=== PATIENT | female | born 1975 | race Caucasian/White ===

== ENCOUNTER 2022-08-27 05:50 | Day surgery (SDC) | payer BC, OTHER ==
--- NOTE | 2022-08-21 07:59 | NUR ---
TALKED WITH PATRICK ABOUT EKG AND LABS AND THEY BOTH WILL BE REDONE ON ARRIVAL.
[~2022-08-27] VITALS: Ht 165.1 cm; Wt 68.2 kg
[~2022-08-27 05:50] MED LIST: LISINOPRIL-HCT1 EAC1 PO; LISINOPRIL-HCT1 EACH PO; MAXALT10 MG PO; MAXALT5 MG PO; WELLBUTRIN SR100 MG PO; WELLBUTRIN XL150 MG PO
--- NOTE | 2022-08-27 09:34 | NUR ---
08/27/22 0934 Trena Art 0924-PATIENT ARRIVED TO PACU DROWSY ON 6L MASK RR EVEN HOB ELEVATED. PATIENT SR. IVF INFUSING. PATIENT REACTIVE TO VERBAL STIMULI DENIES PAIN OR NAUSEA. INCISIONS CDI TIMOTHY PAD IN PLACE SMALL AMT OF DRAINAGE. 0933-PATIENT AWAKE WANTING TO SIT UP MORE. HOB ELEVATED AND PATIENT REPOSITIONED SELF IN BED. PATIENT PLACED ON RA 100% RR EVEN. DENIES PAIN OR NAUSEA.
--- NOTE | 2022-08-27 10:13 | NUR ---
0950: PT ARRIVES TO DS TREATMENT ROOM VIA STRETCHER AWAKE AND ALERT. PT DENIES NAUSEA AND TOLERATE SMALL SIPS OF WATER. PT RATES PAIN 4/10 AND STATES "IT'S FINE, IT REALLY ISN'T THAT BAD" PT EDUCATED ABOUT PAIN MANAGEMENT AND WILL LET RN KNOW IF PAIN INCREASES. PT STATES URGE TO VOID AND IS ASSISTED TO SIDE OF BED PRIOR TO STANDING, STATES SLIGHT DIZZINESS WITH NO NAUSEA. PT STANDS WHEN READY AND SLOWLY AMBULATES TO ATTACHED BATHROOM WITH RN AND DAUGHTER ASSIST. PT ABLE TO VOID QS YELLOW URINE WITH RED TINGE, NO CLOTS PRESENT. PROVIDED NEW TIMOTHY PAD AND MESH PANTIES. BACK TO STRETCHER WITH WARM BLANKETS AND CALL LIGHT WITHIN REACH. FAMILY AT BEDSIDE AND DC CRITERIA EXPLAINED.
--- NOTE | 2022-08-27 10:45 | NUR ---
1045: PT USES CALL LIGHT FOR PAIN MEDICATION, RATES PAIN 6/10. PT BACK TO BASELINE AND CONVERSING WITH FAMILY AT BEDSIDE, TOLERATES CRACKERS WITH NO NAUSEA. 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
--- NOTE | 2022-08-27 14:08 | NUR ---
[id number]: PT RATES PAIN 3/10 IN ABD AND DENIES ANY NAUSEA OR S/S OF REACTION FROM PAIN MEDICATION. DC CRITERIA MET AT THIS TIME AND PT DESIRES TO DC HOME. PT DRESSES SELF AND OPENS CURTAIN WHEN FINISHED. DC INSTRUCTIONS PRESENTED VERBALLY AND WRITTEN. PT CONFIRMS SHE ALREADY HAS MEDICATIONS AT HOME THAT DR. ANTHONY PRESCRIBED IN ADVANCE. PT DC FROM DS TREATMENT ROOM VIA WC TO DAUGHTER WAITING AT FRONT ENTRANCE IN PERSONAL VEHICLE TO HOME.
--- NOTE | 2022-08-28 08:56 | OR ---
[facility] [address] [place], [place] [address] Signed DATE OF OPERATION: 08/27/2022 SURGEON: Pat Eden MD HEALTHCARE PROJECT MANAGER: ROJELIO Oneil DO PREOPERATIVE DIAGNOSES: Prior endometrial ablation, abnormal uterine bleeding, probable adenomyosis. POSTOPERATIVE DIAGNOSES: Prior endometrial ablation, abnormal uterine bleeding, probable adenomyosis with pelvic adhesions. PROCEDURE: Total laparoscopic hysterectomy with bilateral salpingectomy, lysis of adhesions, and cystoscopy. ANESTHESIA: General ET. ESTIMATED BLOOD LOSS: 30 mL. DRAINS: None. INDICATIONS AND FINDINGS: The patient is a 47-year-old female who underwent an endometrial ablation quite sometime ago. She began having abnormal bleeding as well as increasing pain. Ultrasound was consistent with adenomyosis. She desired definitive treatment. She did try oral contraceptives which improved her bleeding but not her pain. At the time of surgery, exam under anesthesia revealed a normal-size uterus as well as normal adnexa. At the time of laparoscopy, she had significant adhesions of the omentum to the anterior abdominal wall from her prior appendectomy. DESCRIPTION OF PROCEDURE: The patient was prepped and draped in the dorsal lithotomy position. A weighted speculum was placed in the vagina and the anterior lip of the cervix was visualized and grasped with a single-tooth tenaculum. The cavity was sounded with some difficulty up Electronically Signed By: PAT EDEN MD 08/28/22 0856 PATIENT NAME: MI BAJWA SONA OPERATIVE REPORT DATE OF : 79 REPORT #: [id number] PHYSICIAN: PAT EDEN MD PCP: DEON WU PA-C REPORT IS CONFIDENTIAL AND NOT TO BE RELEASED WITHOUT AUTHORIZATION [facility] [address] [place], [place] [address] Signed to 10 cm. The endocervical canal was then dilated and a VCare cannula was placed and the balloon inflated at the fundus. The tenaculum and speculum were removed and the cup was fitted over the cervix and a locking cap was fitted into place. She also had a Morel catheter placement at this time. This required #10 Morel catheter as her urethra was quite small and the usual size catheter could not be placed. Attention was directed above. The infraumbilical area was injected with 0.5% Marcaine plain. An incision was made with a knife, and each layer was serially elevated, incised until the fascia was opened and identified. The peritoneum was opened bluntly. Stay sutures were placed on the fascia using 0 Vicryl. The Franco cannula was then placed and the balloon inflated and it was tied into place. Placement of the scope confirmed proper positioning. Secondary ports were then placed. These were placed laterally slightly below the level of the umbilicus. Each of these areas were transilluminated, injected with Marcaine, incision made with a knife and the trocars placed under direct vision. The left-sided port was a 5 mm port and the right sided port was a Veress needle followed by the expanding port. Following this, the adhesions were lysed to allow for further ease in the surgery. The LigaSure [place] device was used to incise the omental adhesions across the patient's right lower quadrant. There was no bowel involved with any of these. The V-Care cannula had perforated the uterus at the fundus which was not unexpected given her history of endometrial ablation. The patient's left tube was grasped and the mesosalpinx was serially coagulated and divided to the cornu and the specimen divided and removed. The utero-ovarian and round ligament pedicles were then were serially coagulated and divided. The anterior leaf of the peritoneum was incised allowing for development of a partial bladder flap. The peritoneum was taken down posteriorly as well. The uterine vessels were skeletonized and coagulated multiple times and divided. Attention was then directed to the patient's right side. The tube was removed in the same manner and divided at the cornu. The specimen was also retrieved. The utero-ovarian ligament and round ligament were serially coagulated and divided as well. The anterior leaf of the peritoneum was incised completing the bladder flap. The peritoneum was taken down posteriorly as well. The uterine vessels were skeletonized and coagulated multiple times and divided. Further dissection was done both posteriorly and anteriorly. The cup could be palpated and visualized at this point. It was felt that the specimen could be removed. The specimen was from the cuff with the Sonicision device. This was begun posteriorly and wrapped around the patient's left side and anteriorly and again posteriorly and wrapped around anteriorly. Following this, the specimen was retrieved vaginally and the vaginal canal packed with a glove with a wet lap. The abdomen was then reinflated and the vaginal cuff inspected. There was some bleeding near the left uterine vessels and the LigaSure device was used to coagulate these further. Following this, it was felt that the cuff could be closed. The zero PDS Stratafix was then used to close the vaginal cuff. It was begun at the patient's right uterosacral ligament, taking care to incorporate both the posterior and anterior vaginal mucosa. This was run to the patient's left uterosacral ligament and back to the center again. Following this the abdomen was again irrigated, inspected and Electronically Signed By: PAT EDEN MD 08/28/22 0856 PATIENT NAME: MI BAJWA OPERATIVE REPORT DATE OF : 79 REPORT #: [id number] PHYSICIAN: PAT EDEN MD PCP: DEON WU PA-C REPORT IS CONFIDENTIAL AND NOT TO BE RELEASED WITHOUT AUTHORIZATION [address] [address] Signed good hemostasis was noted. The abdominal instruments were removed allowing as much CO2 as possible to escape. The fascial incision of the umbilicus was reidentified and closed with a running suture of 0 Vicryl. The stay sutures were tied across as well. The skin incisions were closed with subcuticular sutures of 3-0 Vicryl Rapide. Attention was directed down below the vaginal pack removed. The Morel catheter was removed and the pediatric cystoscope was used to evaluate the bladder. She had received IV fluorescein. The bladder was evaluated and there was no evidence of any injury. Both of the ureteral orifices were identified and free spill of fluorescein stained urine was seen bilaterally. Following this, the bladder was drained and the Morel not replaced. All sponge and needle counts were correct. She tolerated the procedure well and was taken to the recovery room in good condition. Pat Eden MD PJW/GOLDEN /[id number] cc: Eloy Oneil DO Copies: ELOY ONEIL (ROJELIO) DO ~ Electronically Signed By: PAT EDEN MD 08/28/22 0856 PATIENT NAME: NOÉ BAJWAMARY MAGALLANES OPERATIVE REPORT DATE OF : 79 REPORT #: [id number] PHYSICIAN: PAT EDEN MD PCP: DEON WU PA-C REPORT IS CONFIDENTIAL AND NOT TO BE RELEASED WITHOUT AUTHORIZATION
--- NOTE | 2022-08-29 18:30 | EKG ---
[facility] [address] [place] [address] Signed Normal sinus rhythm Normal ECG When compared with ECG of 18-AUG-2022 16:20, No significant change was found Confirmed by Slava Phillips MD () on 08/29/2022 6:30:04 PM Electronically Signed By: SLAVA PHILLIPS MD 08/29/221829 PATIENT NAME: MI BAJWA SONA Electrocardiogram DATE OF : 79 PHYSICIAN: SLAVA PHILLIPS MD REPORT #: [id number] REPORT IS CONFIDENTIAL AND NOT TO BE RELEASED WITHOUT AUTHORIZATION
== END 2022-08-27 12:00 | disposition home or self-care (01) ==
LOC: DS 05:50
PROVIDERS: ATTEND Obstetrics & Gynecology
PROC: 0UT94ZZ Resection of Uterus, Percutaneous Endoscopic Approach (ICD-10-PCS; principal; 2022-08-27 07:30)
PROC: 0UT74ZZ Resection of Bilateral Fallopian Tubes, Percutaneous Endoscopic Approach (ICD-10-PCS; 2022-08-27 07:30)
DX: D25.9 Leiomyoma of uterus, unspecified (principal); N88.8 Other specified noninflammatory disorders of cervix uteri; N83.8 Other noninflammatory disorders of ovary, fallopian tube and broad ligament; N73.6 Female pelvic peritoneal adhesions (postinfective); I10 Essential (primary) hypertension; Z79.899 Other long term (current) drug therapy; Z79.3 Long term (current) use of hormonal contraceptives; Z88.2 Allergy status to sulfonamides; Z87.891 Personal history of nicotine dependence
CPT/HCPCS: 00840; 36415; 80053; 84132; 93005; 93010; J0131; J0690; J1100; J1644; J1885; J2001; J2370; J2405; J2704; J2765; J3010; J7121